=== PATIENT | female | born 1960 | race Hispanic/Latino ===

== ENCOUNTER → 2024-04-01 | Outpatient (CLI) | payer BC | END | disposition home or self-care (01) | LOC: RAH 12:56 | PROVIDERS: ATTEND Physical Medicine & Rehabilitation | DX: M47.816 Spondylosis without myelopathy or radiculopathy, lumbar region (principal); M41.85 Other forms of scoliosis, thoracolumbar region; M53.2X6 Spinal instabilities, lumbar region; M48.061 Spinal stenosis, lumbar region without neurogenic claudication; M25.78 Osteophyte, vertebrae | CPT/HCPCS: 72082; 72110 ==